=== PATIENT | male | born 1955 | race Caucasian/White ===

== ENCOUNTER 2019-06-06 09:58 | Outpatient (CLI) | payer MEDICARE, OTHER, SELFPAY ==
--- NOTE | 2019-06-06 10:15 | USCV_ITS ---
Jj Coe Age: 64 Gender: M : 1955 Exam Date: 06/06/2019 10:17 Ordering Phys: Latesha Vincent Technologist: Monica Louie [place] [facility] [place]: AAA Screening HISTORY: Diameter (cm) AP x Transverse x Length Velocity (cm/s) Waveform Prox Aorta: 2.50 x 2.36 x 88.80 Mid Aorta: 2.29 x 2.42 x 122.00 Distal Aorta: 1.70 x 1.73 x 160.50 Right Iliac Prox: 1.18 x 1.11 x 137.20 Left Iliac Prox: 1.18 x 1.21 x 137.20 Stent Prox Landing x x Aneurysmal Sac Max x x Lt Lat Sac Dim Rt Lat Sac Dim Stent Dist Landing x x Right Iliac Stent x x Left Iliac Stent x x Right Renal Art Left Renal Art FINDINGS: CONCLUSIONS No evidence of abdominal aortic or bilateral iliac aneurysm. Mild arteriovascular disease within the abdominal aorta. Sim Terrazas MD (Electronically Signed) Final Date: 06 June 2019 16:02 S
== END 2019-06-06 09:59 | disposition home or self-care (01) ==
LOC: RAD 10:04 → RADWPI 10:04
PROVIDERS: Family Provider Nurse Practitioner Family; PCP Nurse Practitioner Family; Visit Provider Nurse Practitioner Family
DX: Z13.89 Encounter for screening for other disorder (principal)
CPT/HCPCS: 76706

== ENCOUNTER → 2019-07-01 11:19 | Outpatient (BNVA) | payer MEDICARE, OTHER, SELFPAY | PROVIDERS: Family Provider Nurse Practitioner Family; PCP Nurse Practitioner Family; Visit Provider Urology | DX: R39.9 Unspecified symptoms and signs involving the genitourinary system (principal); Z12.5 Encounter for screening for malignant neoplasm of prostate; N40.1 Benign prostatic hyperplasia with lower urinary tract symptoms; N13.8 Other obstructive and reflux uropathy; R35.8 Other polyuria; R35.0 Frequency of micturition | CPT/HCPCS: 81001 ==

== ENCOUNTER 2019-07-15 10:42 | Outpatient (CLI) | payer MEDICARE, OTHER, SELFPAY ==
--- NOTE | 2019-07-15 11:11 | XR_ITS ---
WS: [id number] SCREENING DEXA SCAN [place] CLINICAL INFORMATION: WEDGE COMPRESSION FX OF LUMBAR VERTEBRAE, CLOSED FRACTURE COMPARISON: None. FINDINGS: The L1-L4 bone mineral density measures 1.163 g/cm2. This corresponds to a T score score of -0.5 and Z score of -0.2. Left femoral neck bone mineral density measures 1.001 g/cm2. This corresponds to a T score of -0.7 an d Z score of -0.2. Right femoral neck bone mineral density measures 0.931 g/cm2. This corresponds to a T score -1.2of an d Z score of -0.7. Mean femoral neck bone mineral density measures 0.966 g/cm2. This corresponds to a T score of -0.9 an d Z score of -0.5. XR/XR DEXA axial skeleton* 83099 IMPRESSION: Osteopenia Patient's FRAX calculated 10 year probability for major osteoporotic fracture i s 10.9 % and osteoporotic hip fracture is 2.9%.
== END 2019-07-15 10:43 | disposition home or self-care (01) ==
LOC: RADWPI 10:48
PROVIDERS: Family Provider Nurse Practitioner Family; PCP Nurse Practitioner Family; Visit Provider Nurse Practitioner Family
DX: M48.56XA Collapsed vertebra, not elsewhere classified, lumbar region, initial encounter for fracture (principal)
CPT/HCPCS: 77080

== ENCOUNTER → 2020-06-30 12:49 | Outpatient (BNVA) | payer MEDICARE, OTHER, SELFPAY | PROVIDERS: Family Provider Nurse Practitioner Family; PCP Nurse Practitioner Family; Visit Provider Urology | DX: Z12.5 Encounter for screening for malignant neoplasm of prostate (principal); N40.1 Benign prostatic hyperplasia with lower urinary tract symptoms; N13.8 Other obstructive and reflux uropathy; R35.0 Frequency of micturition | CPT/HCPCS: 81003; G0103 ==

== ENCOUNTER → 2022-06-27 12:12 | Outpatient (BNVA) | payer BC, SELFPAY | PROVIDERS: Family Provider Nurse Practitioner Family; PCP Nurse Practitioner Family; Visit Provider Urology | DX: Z12.5 Encounter for screening for malignant neoplasm of prostate (principal) | CPT/HCPCS: 84153 ==

== ENCOUNTER → 2022-07-04 12:32 | Outpatient (BNVA) | payer BC, SELFPAY | PROVIDERS: Family Provider Nurse Practitioner Family; PCP Nurse Practitioner Family; Visit Provider Urology | DX: R35.0 Frequency of micturition (principal) | CPT/HCPCS: 81003 ==

== ENCOUNTER 2022-07-19 07:44 | Day surgery (SDC) | payer BC, SELFPAY ==
[2022-07-17 12:07] VITALS: BMI 23.1
[2022-07-19 08:10] VITALS: BP 131/93; PULSE 80; RESP 18; TEMP 36.3; O2SAT 95
[2022-07-19] MEDS: sodium chloride 0.9% 1,000 ML 30 ML IV (08:19)
--- NOTE | 2022-07-19 09:09 | ANES.PREANE2 ---
Pre-Anesthetic Assessment Height/Weight: Height 1.85 m Weight 79.379 kg Temp Pulse Resp BP Pulse Ox O2 Del Method 97.3 F L 80 18 131/93 95 Room Air 07/19/22 08:10 07/19/22 08:10 07/19/22 08:10 07/19/22 08:10 07/19/22 08:10 07/19/22 08:10 Preop Diagnosis: Hematochezia, GERD Operation Date: 07/19/22 09:45 Proposed Procedures p 99141 egd [id number] colon w/hemorrhoid banding K92.1,K21.9(Not Applicable) - DO selena Neff Colonoscopy(Not Applicable) - DO selena Neff Hemorrhoid Banding(Not Applicable) - George Gomez DO Familial anesthetic complications: none Last intake: Intake Last Liquid Date 07/18/22 Last Liquid Time 22:00 Last Solid Date 07/17/22 Last Solid Time 21:00 Social Alcohol (2 days per week) and Tobacco smokes pipe pack(s) per day Exam alert, oriented x 3, clear to auscultation bilaterally and regular rate & rhythm Airway Submandibular: within normal limits Cervical ROM: within normal limits Mallampati: Class II Dentition: full Comments: Comments: bearded Pulmonary None reported CV/HEM Hypertension and Palpitations METS>4-6 None reported Hepatic None reported GI Gastroesophageal Reflux Disease Metabolic Hyperlipidemia [facility] [place] None reported Neuropsych Depression Anesthetic Plan ASA status: 3 Anesthesia: MAC Medications/Allergies Home Medications Medication Instructions Recorded Confirmed Last Taken Type antiarthritic combination no.2 900 900 mg PO BID 07/01/19 07/17/22 07/17/22 History mg tablet (glucosamine-chondroitin) aspirin 81 mg tablet,delayed 81 mg PO DAILY 07/01/19 07/17/22 07/17/22 History release (Adult Low Dose Aspirin) magnesium oxide 400 mg PO DAILY 07/01/19 07/17/22 07/17/22 History metoprolol tartrate 25 mg tablet 25 mg PO BID 07/01/19 07/17/22 07/18/22 08:00 History dpkgiqiw-ujl-uffcz acid 300 1 tab PO DAILY 07/01/19 07/17/22 07/17/22 History mcg-lycopene 600 mcg-lutein 300 mcg tablet (Centrum Silver Men) omega-3 fatty acids 1,000 mg 1,000 mg PO BID 07/01/19 07/17/22 07/17/22 History capsule (Fish Oil Concentrate) potassium gluconate 595 mg (99 mg) 595 mg PO DAILY 07/01/19 07/17/22 07/17/22 History tablet atorvastatin 40 mg tablet 40 mg PO DAILY 06/27/22 07/17/22 07/17/22 History bupropion HCl 150 mg tablet,12 hr 150 mg PO BID 06/27/22 07/17/22 07/17/22 History sustained-release hydrocortisone 2.5 % topical cream 1 applic GA QID hemorrhoids 10 06/29/22 07/17/22 07/17/22 Rx with perineal applicator days #30 grams (Anusol-HC) pantoprazole 40 mg tablet,delayed 40 mg PO BID 6 weeks #84 tabs 06/29/22 07/17/22 07/17/22 Rx release (Protonix) finasteride 5 mg tablet 5 mg PO QDAY #90 tabs 07/04/22 07/17/22 07/17/22 Rx tamsulosin 0.4 mg capsule 0.4 mg PO DAILY #90 caps 07/04/22 07/17/22 07/17/22 Rx Allergies Allergy/AdvReac Type Severity Reaction Status Date / Time Penicillins Allergy Unknown Unknown Verified 07/17/22 11:52 Current Medications Generic Name Dose Route Start Last Admin Trade Name Freq PRN Reason Stop Dose Admin Sodium Chloride 1,000 mls @ 30 mls/hr 07/19/22 08:15 07/19/22 08:19 Sodium Chloride 0.9% IV 07/20/22 08:14 30 mls/hr .Q24H LIBRA Administration PFSH Anesthesia Medical History BPH with urinary obstruction Incomplete bladder emptying Polyuria Post-traumatic bulbous urethral stricture Surgical History Hx of tonsillectomy Hx of transurethral resection of prostate Family History Mother , age 87 CAD (coronary artery disease) Father , age 87 CAD (coronary artery disease) Social History Smoking and tobacco status: current every day smoker Alcohol intake: current Alcohol intake frequency: few times a week Substance/Drug Use: unknown Adopted: No Caregiver/support person: No Lives independently: No Household members: spouse Marital status: Single Current occupational status: retired Current gender identity: Male Data Anesthesia Cardiac Studies: No Data to Display
--- NOTE | 2022-07-19 10:51 | W.PM.OPSUD ---
Surgery/Procedure H&P Update DATE OF PROCEDURE: July 19, 2022 DATE H&P PERFORMED: 06/27/22 H&P UPDATE INFORMATION: I have reviewed H&P completed within last 30 days, I have examined patient prior to procedure and No changes to prior documentation PREOP DIAGNOSIS: Hematochezia, GERD PLANNED PROCEDURE: Operation Date: 07/19/22 09:45 Proposed Procedures p 79103 egd 15048 colon w/hemorrhoid banding K92.1,K21.9(Not Applicable) - George Gomez DO s Colonoscopy(Not Applicable) - DO selena Neff Hemorrhoid Banding(Not Applicable) - George Gomez DO
[2022-07-19 11:29] VITALS: BP 135/85; PULSE 82; RESP 16; TEMP 36.1; O2SAT 93
[2022-07-19 11:52] VITALS: BP 141/89; PULSE 79; RESP 16; O2SAT 96
--- NOTE | 2022-07-19 14:25 | ANE.PACU2 ---
Inpatient post-anesthesia follow up: Airway intact: Yes Vital signs: Temperature 97 F Pulse Rate 79 Respiratory Rate 16 Blood Pressure 141/89 Pulse Oximetry 96 Oxygen Delivery Me thod Room Air Oxygen Flow Rate 3 Fraction of Inspir ed Oxygen Hydration adequate: Yes Nausea and vomiting: No Pain level: 1 Mental status: Baseline
== END 2022-07-19 11:59 | disposition home or self-care (01) ==
PROVIDERS: PCP Nurse Practitioner Family; Visit Provider Surgery
PROC: 0DJ08ZZ Inspection of Upper Intestinal Tract, Via Natural or Artificial Opening Endoscopic (ICD-10-PCS; CPT 43235; principal; 2022-07-19 09:45)
PROC: 0DJD8ZZ Inspection of Lower Intestinal Tract, Via Natural or Artificial Opening Endoscopic (ICD-10-PCS; CPT 45378; 2022-07-19 09:45)
DX: K92.1 Melena (principal); Z86.010 Personal history of colon polyps; K21.9 Gastro-esophageal reflux disease without esophagitis; I10 Essential (primary) hypertension; F32.A Depression, unspecified; F17.290 Nicotine dependence, other tobacco product, uncomplicated; K29.50 Unspecified chronic gastritis without bleeding; D12.2 Benign neoplasm of ascending colon; D12.8 Benign neoplasm of rectum; K44.9 Diaphragmatic hernia without obstruction or gangrene; K64.8 Other hemorrhoids
CPT/HCPCS: 43239; 45385; 45388; 88305; 88342; J2704; J7030

== ENCOUNTER 2022-12-13 12:08 | Outpatient (CLI) | payer BC, SELFPAY ==
--- NOTE | 2022-12-13 | ECG_ITS ---
Test Date: 2022-12-13 Pat Name: Jj Coe Department: Room: Gender: Male Computer Help Desk Specialist: Mason Rosenbaum : 1955 Requested By: Paola Carnes Order Number: [id number] Mandy MD: Bart Serrano M.D. Interpretive Statements NAME OF STUDY: TREADMILL STRESS TEST INDICATION: [Chest Pain, ] EXERCISE DATA: The patient was exercised by Donald protocol. Baseline heart rate was 117 beats per minute. Baseline blood pressure was 130/78 millimeters of mercury. Target heart rate was 129 beats per minute. Maximum heart rate achieved was 166 which was 128% of the target heart rate. Maximum blood pressure was 202/83 millimeters of mercury. Total exercise time was 5 minutes and 1 secoon. Maximum METs achieved was 7. The reason for ending the test was maximal effort achieved. The patient complained of shortness of breath during the stress test, which then resolved at the end of the test. ELECTROCARDIOGRAM: BASELINE: Showed sinus tachycardia, left axis deviation, non specific ST T wave changes. [] EXERCISE: At the peak exercise level, [] No significant ST-T changes suggestive of ischemia noted. [] RECOVERY: During the recovery period, heart rate stayed elevated. No significant ST-T changes in the recovery suggestive of ischemia noted. [] CONCLUSION: 1. Exercise capacity is fair 2. Heart rate response was appropriate 3. Blood pressure response was appropriate 4. Symptoms not suggestive of ischemia. 5. Electrocardiogram portion of the stress test was not suggestive of ischemia. Electronically Signed On 12-28-2022 12:11:54 CDT by Bart Serrano M.D. [email or web address]
[2022-12-13 12:26] VITALS: BMI 23.7
[2022-12-13 13:02] VITALS: BP 117/84; PULSE 122
== END 2022-12-13 12:09 | disposition home or self-care (01) ==
LOC: CDL 12:09
PROVIDERS: PCP Nurse Practitioner Family; Visit Provider Nurse Practitioner Family
DX: R07.9 Chest pain, unspecified (principal)
CPT/HCPCS: 93017

== ENCOUNTER 2023-09-26 09:41 | Day surgery (SDC) | payer BC, SELFPAY ==
[2023-09-26 10:02] VITALS: BP 147/94; PULSE 66; RESP 16; TEMP 36.4; O2SAT 96; BMI 23.7
[2023-09-26] MEDS: sodium chloride 0.9% 1,000 ML 30 ML IV (10:15)
--- NOTE | 2023-09-26 11:15 | ANES.PREANE2 ---
Pre-Anesthetic Assessment Height/Weight: Height 1.85 m Weight 81.647 kg Temp Pulse Resp BP Pulse Ox O2 Del Method 97.5 F L 66 16 147/94 96 Room Air 09/26/23 10:02 09/26/23 10:02 09/26/23 10:02 09/26/23 10:02 09/26/23 10:02 09/26/23 10:02 Operation Date: 09/26/23 11:15 Proposed Procedures p EGD 81749, 66374 , G0105, K21.9 GERD, Z86.010(Not Applicable) - DO selena Neff Colonoscopy(Not Applicable) - George Gomez DO Familial anesthetic complications: None Was Beta Carl taken within 24 hours: Yes Was Clonidine taken within 24 hours: N/A Last intake: Intake Last Liquid Date 09/25/23 Last Liquid Time 21:00 Last Solid Date 09/24/23 Last Solid Time 18:00 Social Tobacco and No alcohol Exam alert, oriented x 3, clear to auscultation bilaterally and regular rate & rhythm Airway Mallampati: Class II GI Gastroesophageal Reflux Disease Neuropsych Anxiety Anesthetic Plan ASA status: 2 Anesthesia: MAC Risk of > 500 ml blood loss (7ml/kg in children): No Medications/Allergies Home Medications Medication Instructions Recorded Confirmed Last Taken Type antiarthritic combination no.2 900 900 mg PO BID 07/01/19 09/26/23 09/25/23 History mg tablet (glucosamine-chondroitin) aspirin 81 mg tablet,delayed 81 mg PO DAILY 07/01/19 09/26/23 09/24/23 History release (Adult Low Dose Aspirin) magnesium oxide 400 mg PO DAILY 07/01/19 09/26/23 09/24/23 History metoprolol tartrate 25 mg tablet 25 mg PO BID 07/01/19 09/26/23 09/26/23 History zpxfttfk-hq-srnfc 300 mcg-K 60 1 tab PO DAILY 07/01/19 09/26/23 09/25/23 History mcg-lycop 600 mcg-lutein 300 mcg tablet (Centrum Silver Men) omega-3 fatty acids 1,000 mg 1,000 mg PO BID 07/01/19 09/26/23 09/24/23 History capsule (Fish Oil Concentrate) atorvastatin 40 mg tablet 40 mg PO DAILY 06/27/22 09/26/23 09/25/23 History bupropion HCl 150 mg tablet,12 hr 150 mg PO BID 06/27/22 09/26/23 09/25/23 History sustained-release (Wellbutrin SR) hydrocortisone 2.5 % topical cream 1 applic HI QID hemorrhoids 10 06/29/22 09/26/23 07/17/22 Rx with perineal applicator days #30 grams (Anusol-HC) finasteride 5 mg tablet 5 mg PO QDAY #90 tabs 07/04/22 09/26/23 09/25/23 Rx tamsulosin 0.4 mg capsule 0.4 mg PO DAILY #90 caps 07/04/22 09/26/23 09/25/23 Rx methocarbamol 750 mg tablet 750 mg PO BID 09/25/23 09/26/23 09/25/23 History omeprazole 20 mg capsule,delayed 20 mg PO DAILY 09/25/23 09/26/23 09/25/23 History release Allergies Allergy/AdvReac Type Severity Reaction Status Date / Time Penicillins Allergy Unknown Unknown Verified 09/26/23 10:00 Current Medications Generic Name Dose Route Start Last Admin Trade Name Freq PRN Reason Stop Dose Admin Sodium Chloride 1,000 mls @ 30 mls/hr 09/26/23 10:00 09/26/23 10:15 Sodium Chloride 0.9% IV 09/27/23 09:59 30 mls/hr .Q24H LIBRA Administration PFSH Anesthesia Medical History (Updated 08/06/23 @ 11:26 by George Gomez DO) History of colon polyps Polyuria Post-traumatic bulbous urethral stricture Incomplete bladder emptying BPH with urinary obstruction Surgical History Hx of transurethral resection of prostate Hx of tonsillectomy Family History Mother , age 87 CAD (coronary artery disease) Father , age 87 CAD (coronary artery disease) Social History Smoking and tobacco/nicotine status: current every day tobacco/nicotine user Alcohol intake: current Alcohol intake frequency: few times a week Substance/Drug Use: unknown Adopted: No Caregiver/support person: No Lives independently: No Household members: spouse Marital status: Single Current occupational status: retired Current gender identity: Male Data Anesthesia Cardiac Studies: No Data to Display
--- NOTE | 2023-09-26 11:47 | PM.HP ---
Providers/Chief Complaint Primary Care Provider: Paola Carnes Chief Complaint: K21.9 History of Present Illness Jj Coe Jr is a 68 year old male Review of Systems General: Reports: 10 or more systems reviewed and unremarkable except in HPI and below Medications/Allergies Home Medications Medication Instructions Recorded Confirmed Last Taken Type antiarthritic combination no.2 900 900 mg PO BID 07/01/19 09/26/23 09/25/23 History mg tablet (glucosamine-chondroitin) aspirin 81 mg tablet,delayed 81 mg PO DAILY 07/01/19 09/26/23 09/24/23 History release (Adult Low Dose Aspirin) magnesium oxide 400 mg PO DAILY 07/01/19 09/26/23 09/24/23 History metoprolol tartrate 25 mg tablet 25 mg PO BID 07/01/19 09/26/23 09/26/23 History uwkgtfeq-bj-bdhif 300 mcg-K 60 1 tab PO DAILY 07/01/19 09/26/23 09/25/23 History mcg-lycop 600 mcg-lutein 300 mcg tablet (Centrum Silver Men) omega-3 fatty acids 1,000 mg 1,000 mg PO BID 07/01/19 09/26/23 09/24/23 History capsule (Fish Oil Concentrate) atorvastatin 40 mg tablet 40 mg PO DAILY 06/27/22 09/26/23 09/25/23 History bupropion HCl 150 mg tablet,12 hr 150 mg PO BID 06/27/22 09/26/23 09/25/23 History sustained-release (Wellbutrin SR) hydrocortisone 2.5 % topical cream 1 applic MA QID hemorrhoids 10 06/29/22 09/26/23 07/17/22 Rx with perineal applicator days #30 grams (Anusol-HC) finasteride 5 mg tablet 5 mg PO QDAY #90 tabs 07/04/22 09/26/23 09/25/23 Rx tamsulosin 0.4 mg capsule 0.4 mg PO DAILY #90 caps 07/04/22 09/26/23 09/25/23 Rx methocarbamol 750 mg tablet 750 mg PO BID 09/25/23 09/26/23 09/25/23 History omeprazole 20 mg capsule,delayed 20 mg PO DAILY 09/25/23 09/26/23 09/25/23 History release Allergies Allergy/AdvReac Type Severity Reaction Status Date / Time Penicillins Allergy Unknown Unknown Verified 09/26/23 10:00 PFSH Acute PFSH: Medical History History of colon polyps Polyuria Post-traumatic bulbous urethral stricture Incomplete bladder emptying BPH with urinary obstruction Surgical History Hx of transurethral resection of prostate Hx of tonsillectomy Family History Mother , age 87 CAD (coronary artery disease) Father , age 87 CAD (coronary artery disease) Social History Smoking and tobacco/nicotine status: current every day tobacco/nicotine user Alcohol intake: current Alcohol intake frequency: few times a week Substance/Drug Use: unknown Adopted: No Caregiver/support person: No Lives independently: No Household members: spouse Marital status: Single Current occupational status: retired Current gender identity: Male Vitals/I&O/Wt Last Vital Signs Temp 97.5 F L 09/26/23 10:02 Pulse 66 09/26/23 10:02 Resp 16 09/26/23 10:02 BP 147/94 09/26/23 10:02 Pulse Ox 96 09/26/23 10:02 O2 Del Method Room Air 09/26/23 10:02 Weight last 48 hrs Weight 180 lb Physical Exam Narrative: General : Patient is well developed , no acute distress, oriented x3 Head : Normal cephalic, a-traumatic. Ears : Pinnae and external canal are normal. Hearing is normal. Eyes : PERRLA, Sclera and injection are normal. No conjunctival discharge. Nose : Mucous membranes are without erythema. Throat : buccal mucosa is normal, gums are without significant recession or hypertrophy. Lungs : Equal chest rise bilaterally, no use of accessory muscles, trachea is midline. Cor : Rate and rhythm are normal. Abdomen : Soft, ND, NT, no g/r/m Extremities : No edema, no cyanosis or clubbing, dorsalis pedis pulses are present bilaterally, non-tender to palpation of calves. Upper extremities are normal bilaterally. Back : non-tender to palpation, no CVA tenderness. Neuro : CN II - XII intact, Upper and lower extremities have equal and full strength A&P Assessment and plan (1) GERD (gastroesophageal reflux disease): (2) History of colon polyps: Plan EGD and colonoscopy Attestations Medical Necessity Statement*: Home Coding Level of Care Code Acute Code for Chg Fwd Diagnoses GERD (gastroesophageal reflux disease) K21.9 History of colon polyps Z86.010
[2023-09-26 12:39] VITALS: BP 121/70; PULSE 56; RESP 18; TEMP 36.1; O2SAT 94
[2023-09-26 12:55] VITALS: BP 138/72; PULSE 60; RESP 16; O2SAT 99
--- NOTE | 2023-09-26 13:10 | ANE.PACU2 ---
Inpatient post-anesthesia follow up: Airway intact: Yes Vital signs: Temperature 97.0 F Pulse Rate 60 Respiratory Rate 16 Blood Pressure 138/72 Pulse Oximetry 99 Oxygen Delivery Me thod Room Air Oxygen Flow Rate 3 Fraction of Inspir ed Oxygen Hydration adequate: Yes Nausea and vomiting: No Pain level: 1 Mental status: Baseline
== END 2023-09-26 13:09 | disposition home or self-care (01) ==
PROVIDERS: PCP Nurse Practitioner Family; Visit Provider Surgery
PROC: 0DJ08ZZ Inspection of Upper Intestinal Tract, Via Natural or Artificial Opening Endoscopic (ICD-10-PCS; CPT 43235; principal; 2023-09-26 11:15)
PROC: 0DJD8ZZ Inspection of Lower Intestinal Tract, Via Natural or Artificial Opening Endoscopic (ICD-10-PCS; CPT 45378; 2023-09-26 11:15)
DX: Z12.11 Encounter for screening for malignant neoplasm of colon (principal); K21.9 Gastro-esophageal reflux disease without esophagitis; F17.200 Nicotine dependence, unspecified, uncomplicated; Z86.010 Personal history of colon polyps; K64.8 Other hemorrhoids; D12.2 Benign neoplasm of ascending colon; D12.5 Benign neoplasm of sigmoid colon; D12.3 Benign neoplasm of transverse colon; Z79.82 Long term (current) use of aspirin; N40.1 Benign prostatic hyperplasia with lower urinary tract symptoms; N13.8 Other obstructive and reflux uropathy
CPT/HCPCS: 43239; 45385; 45388; 88305; J2704; J7030

== ENCOUNTER → 2023-09-28 15:08 | Outpatient (BNVA) | payer BC, SELFPAY | PROVIDERS: PCP Nurse Practitioner Family; Visit Provider Podiatrist Foot & Ankle Surgery | DX: S82.832A Other fracture of upper and lower end of left fibula, initial encounter for closed fracture (principal); W18.09XA Striking against other object with subsequent fall, initial encounter | CPT/HCPCS: 73610 ==

== ENCOUNTER → 2023-10-10 10:43 | Outpatient (BNVA) | payer BC, SELFPAY | PROVIDERS: PCP Nurse Practitioner Family; Visit Provider Podiatrist Foot & Ankle Surgery | DX: S82.832D Other fracture of upper and lower end of left fibula, subsequent encounter for closed fracture with routine healing; X58.XXXD Exposure to other specified factors, subsequent encounter | CPT/HCPCS: 73610 ==

== ENCOUNTER → 2023-10-24 11:18 | Outpatient (BNVA) | payer BC, SELFPAY | PROVIDERS: PCP Nurse Practitioner Family; Visit Provider Podiatrist Foot & Ankle Surgery | DX: S82.832D Other fracture of upper and lower end of left fibula, subsequent encounter for closed fracture with routine healing; X58.XXXD Exposure to other specified factors, subsequent encounter | CPT/HCPCS: 73610 ==

== ENCOUNTER 2024-06-11 08:51 | Outpatient (CLI) | payer BC, SELFPAY ==
--- NOTE | 2024-06-11 08:54 | CT_ITS ---
WS: [id number] LDCT LUNG CANCER SCREENING TECHNIQUE: Noncontrast CT of the chest with coronal and sagittal reformatted images. CLINICAL INFORMATION: HX OF TOBACCO USE COMPARISON: None. DLP: 79.79 mGy.cm DIvol: Mean CTDIvol: 1.60 (mGy) All CT scans at [facility] use at least one of these dose optimization techniques: automated exposure control; mA and/or kV adjustment per patient size (includes targeted exams where dose is matched to clinical indication); or iterative reconstruction. FINDINGS: Subsegmental atelectasis in the lower lobes. Focal area of fibrosis LEFT lower lobe. Hazy groundglass opacity in the LEFT upper lobe measuring 1.8 x 1.5 cm this may be infectious or inflammatory but adenocarcinoma not excluded. Recommend further evaluation with PET/CT. No other suspicious pulmonary parenchymal abnormalities. Aortic calcification. No mediastinal or hilar lymphadenopathy. Coronary calcification. No axillary lymphadenopathy. Adrenal glands are normal. Small LEFT renal cyst. Small esophageal hiatal hernia. Partially visualized hepatic cysts largest in the RIGHT hepatic lobe partially visualized measuring 7.8 cm. Mild thoracic kyphosis. Cholelithiasis. CT/CT lung screening [id number] IMPRESSION: 1.8 x 1.5 cm focal groundglass opacity in the LEFT upper lobe is in determinate. This may be infectious or inflammatory but adenocarcinoma not excl uded. Recommend further evaluation with PET/CT LUNG-RADS: 4B-Suspicious FOLLOW UP: PET/CT recommended
== END 2024-06-11 08:52 | disposition home or self-care (01) ==
PROVIDERS: PCP Family Medicine; Visit Provider Family Medicine
DX: Z12.2 Encounter for screening for malignant neoplasm of respiratory organs (principal); Z87.891 Personal history of nicotine dependence; J98.11 Atelectasis; J84.10 Pulmonary fibrosis, unspecified; R91.8 Other nonspecific abnormal finding of lung field; I70.0 Atherosclerosis of aorta; I25.10 Atherosclerotic heart disease of native coronary artery without angina pectoris; N28.1 Cyst of kidney, acquired; K44.9 Diaphragmatic hernia without obstruction or gangrene; K76.89 Other specified diseases of liver; M40.294 Other kyphosis, thoracic region; K80.20 Calculus of gallbladder without cholecystitis without obstruction
CPT/HCPCS: 71271

== ENCOUNTER 2024-06-27 11:12 | Outpatient (CLI) | payer BC, SELFPAY ==
--- NOTE | 2024-06-27 15:08 | PETR_ITS ---
PROCEDURE INFORMATION: Exam: PET/CT Skull Base to Mid-thigh Exam date and time: 06/27/2024 12:49 PM Age: 69 years old Clinical indication: Abnormal findings; 1.8 x 1.5 cm focal groundglass opacity in the left upper lobe is indeterminate. ; Additional info: Abnormal lung findings LABS AND CLINICAL REPORTS: Glucose: 109 mg/dl Treatment strategy for malignancy (PET staging): Initial Staging (PI) TECHNIQUE: Imaging protocol: Following at least four-hour fasting and following the injection of radiopharmaceutical, low dose CT images were obtained. Then, PET images were obtained. Attenuation corrected images were constructed using the CT scan. Fused images of PET and CT were reviewed. The standardized uptake values (SUV) reported below are maximum values within a region of interest, expressed in gm/ml. Exam includes orbital meatal line to mid-thigh. SUV normalization method: BodyWeight Radiopharmaceutical: 10.81 mCi F-18 FDG (Fluorodeoxyglucose), IV. Time of imaging post radiopharmaceutical administration: 51 minutes Injection site: left ac COMPARISON: CT lung screening [id number] 06/11/2024 9:37 AM FINDINGS: Brain: Visualized brain has normal physiologic uptake. Pharynx: No abnormal uptake. Larynx: No abnormal uptake. Lungs, pleura and trachea: No abnormal uptake. Stable 1.8 x 1.5 cm left upper lobe ground-glass opacity on axial image 90 shows no FDG avidity. Heart: Normal physiologic uptake. Mediastinal space: No abnormal uptake. Liver: No abnormal uptake. Multiple photopenic cysts and non FDG avid subcentimeter hypodensities too small to completely characterize. Gallbladder and biliary ducts: No abnormal uptake. Cholelithiasis. Pancreas: No abnormal uptake. Spleen: No abnormal uptake. Adrenal glands: No abnormal uptake. Kidneys and ureters: Normal physiologic uptake. Tiny bilateral nonobstructive renal calculi. Stomach and bowel: No abnormal uptake. Vasculature: No abnormal uptake. Duex-xa-rrqkbkpd systemic atherosclerotic calcification without aortic aneurysm. Lymph nodes: No abnormal uptake. No lymphadenopathy in the head, neck, chest, abdomen, pelvis, and extremities. Calcified mediastinal node in keeping with sequela of old granulomatous disease. Skeleton: No suspicious abnormal uptake in the visualized axial and appendicular skeleton. Degenerative change along the axial skeletal system. Soft tissues: No abnormal uptake in the visualized head, neck, chest, abdomen, pelvis, and extremities. Tiny fat containing umbilical hernia. Small fat containing djsyu-temnlyn-pstb-left inguinal hernias. METRICS: Mediastinal blood pool: SUV mean 1.6 Liver uptake: SUV mean 1.8 PET/PET skull to thigh INIT [id number] IMPRESSION: 1. Stable 1.8 x 1.5 cm left upper lobe ground-glass opacity shows no FDG avidity. Recommend follow-up chest CT in 6-12 months. 2. Additional chronic and incidental findings as above, to include atherosclerosis, cholelithiasis, and bilateral nonobstructive nephrolithiasis.
== END 2024-06-27 11:13 | disposition home or self-care (01) ==
PROVIDERS: PCP Family Medicine; Visit Provider Family Medicine
DX: R91.8 Other nonspecific abnormal finding of lung field (principal); K76.89 Other specified diseases of liver; K80.20 Calculus of gallbladder without cholecystitis without obstruction; I70.90 Unspecified atherosclerosis; R59.0 Localized enlarged lymph nodes; M47.9 Spondylosis, unspecified; K40.20 Bilateral inguinal hernia, without obstruction or gangrene, not specified as recurrent
CPT/HCPCS: 78815; A9552

== ENCOUNTER 2024-07-16 08:37 | Day surgery (SDC) | payer BC, SELFPAY ==
[2024-07-16 08:55] VITALS: BP 145/73; PULSE 83; RESP 18; TEMP 36.1; O2SAT 94; BMI 23.7
--- NOTE | 2024-07-16 09:00 | W.PM.OPSUD ---
Surgery/Procedure H&P Update DATE OF PROCEDURE: July 16, 2024 DATE H&P PERFORMED: 06/24/24 H&P UPDATE INFORMATION: I have reviewed H&P completed within last 30 days, I have examined patient prior to procedure, No changes to prior documentation, Changes to prior documentation as noted here and Risks and benefits of the procedure reviewed PLANNED PROCEDURE: Operation Date: 07/16/24 10:10 Proposed Procedures p Colonoscopy 81655 G0105 Z12.11 D12.6(Not Applicable) - Marcos Alejandro MD
[2024-07-16] MEDS: sodium chloride 0.9% 1,000 ML 15 ML IV (09:05)
--- NOTE | 2024-07-16 09:39 | ANES.PREANE2 ---
Pre-Anesthetic Assessment Height/Weight: Height 1.85 m Weight 81.647 kg Temp Pulse Resp BP Pulse Ox O2 Del Method 97.0 F L 83 18 145/73 94 Room Air 07/16/24 08:55 07/16/24 08:55 07/16/24 08:55 07/16/24 08:55 07/16/24 08:55 07/16/24 08:55 Operation Date: 07/16/24 10:10 Proposed Procedures p Colonoscopy 12021 G0105 Z12.11 D12.6(Not Applicable) - Marcos Alejandro MD Familial anesthetic complications: none Was Beta Carl taken within 24 hours: Yes Was Clonidine taken within 24 hours: N/A Last intake: Intake Last Liquid Date 07/15/24 Last Liquid Time 22:00 Last Solid Date 07/14/24 Last Solid Time 22:00 Social No alcohol and No tobacco Exam alert and oriented x 3 History/ROS No significant history except as noted Pulmonary None reported CV/HEM Hypertension None reported Hepatic None reported GI Gastroesophageal Reflux Disease (well controlled) Metabolic Hyperlipidemia [facility] [place] None reported Neuropsych None reported Anesthetic Plan ASA status: 2 Anesthesia: Anesthesia Evaluation and MAC Medications/Allergies Home Medications ?Medication ?Instructions ?Recorded ?Confirmed ?Last Taken ?Type antiarthritic combination no.2 900 900 mg PO BID 07/01/19 07/09/24 07/15/24 07:00 History mg tablet (glucosamine-chondroitin) aspirin 81 mg tablet,delayed 81 mg PO DAILY 07/01/19 07/09/24 07/15/24 22:00 History release (Adult Low Dose Aspirin) magnesium oxide 400 mg PO DAILY 07/01/19 07/09/24 07/15/24 07:00 History metoprolol tartrate 25 mg tablet 25 mg PO BID 07/01/19 07/09/24 07/16/24 07:15 History [id number] 300 mcg-K 60 1 tab PO DAILY 07/01/19 07/09/24 07/15/24 07:00 History mcg-lycop 600 mcg-lutein 300 mcg tablet (Centrum Silver Men) omega-3 fatty acids 1,000 mg 1,000 mg PO BID 07/01/19 07/09/24 07/15/24 07:00 History capsule (Fish Oil Concentrate) finasteride 5 mg tablet 5 mg PO QDAY #90 tabs 07/04/22 07/09/24 07/15/24 07:00 Rx tamsulosin 0.4 mg capsule 0.4 mg PO DAILY #90 caps 07/04/22 07/09/24 07/15/24 07:00 Rx Crutches #1 ea 09/28/23 10/25/23 07/15/24 07:00 Rx atorvastatin 80 mg tablet 80 mg PO DAILY 06/24/24 07/09/24 07/15/24 07:00 History mometasone 0.1 % topical cream 1 applic topical DAILY 06/24/24 07/09/24 07/15/24 07:00 History omeprazole 20 mg capsule,delayed 20 mg PO DAILY 06/24/24 07/09/24 07/16/24 07:15 History release Allergies Allergy/AdvReac Type Severity Reaction Status Date / Time Penicillins Allergy Unknown Unknown Verified 07/16/24 08:50 [facility] Anesthesia Medical History History of colon polyps Polyuria Post-traumatic bulbous urethral stricture Incomplete bladder emptying BPH with urinary obstruction Surgical History Hx of transurethral resection of prostate Hx of tonsillectomy Family History Mother , age 87 CAD (coronary artery disease) Father , age 87 CAD (coronary artery disease) Social History Smoking and tobacco/nicotine status: former use of tobacco/nicotine Alcohol intake: current Alcohol intake frequency: few times a week Substance/Drug Use: unknown Adopted: No Caregiver/support person: No Lives independently: No Household members: spouse Marital status: Single Current occupational status: retired Current gender identity: Male
[2024-07-16 10:31] VITALS: BP 99/63; PULSE 55; RESP 16; TEMP 36.5; O2SAT 94
--- NOTE | 2024-07-16 10:33 | ANE.PACU2 ---
Inpatient post-anesthesia follow up: Airway intact: Yes Vital signs: Temperature 97.0 F Pulse Rate 83 Respiratory Rate 18 Blood Pressure 145/73 Pulse Oximetry 94 Oxygen Delivery Me thod Room Air Oxygen Flow Rate Fraction of Inspir ed Oxygen Hydration adequate: Yes Nausea and vomiting: No Pain level: 1 Mental status: Baseline
[2024-07-16 11:09] VITALS: BP 136/82; PULSE 57; RESP 18; O2SAT 94
== END 2024-07-16 11:18 | disposition home or self-care (01) ==
PROVIDERS: PCP Family Medicine; Visit Provider Surgery
PROC: 0DJD8ZZ Inspection of Lower Intestinal Tract, Via Natural or Artificial Opening Endoscopic (ICD-10-PCS; CPT 45378; principal; 2024-07-16 10:10)
DX: Z12.11 Encounter for screening for malignant neoplasm of colon (principal); D12.2 Benign neoplasm of ascending colon; D12.0 Benign neoplasm of cecum; K63.5 Polyp of colon; D12.3 Benign neoplasm of transverse colon; I10 Essential (primary) hypertension; E78.5 Hyperlipidemia, unspecified; K21.9 Gastro-esophageal reflux disease without esophagitis; Z79.899 Other long term (current) drug therapy; Z79.82 Long term (current) use of aspirin; Z88.0 Allergy status to penicillin; Z87.891 Personal history of nicotine dependence
CPT/HCPCS: 45380; 45385; 88305; J2704; J7030

== ENCOUNTER → 2024-07-30 14:34 | Outpatient (BNVA) | payer MEDICARE, SELFPAY | PROVIDERS: PCP Family Medicine; Visit Provider Surgery | DX: Z09 Encounter for follow-up examination after completed treatment for conditions other than malignant neoplasm (principal) | CPT/HCPCS: 99213 ==

== ENCOUNTER → 2024-08-07 10:56 | Outpatient (BNVA) | payer MEDICARE, SELFPAY | PROVIDERS: PCP Family Medicine; Visit Provider Nurse Practitioner Family | DX: L40.0 Psoriasis vulgaris (principal); L57.8 Other skin changes due to chronic exposure to nonionizing radiation; L73.8 Other specified follicular disorders; L82.1 Other seborrheic keratosis; Q82.5 Congenital non-neoplastic nevus; L57.0 Actinic keratosis | CPT/HCPCS: 17000; 99214 ==

== ENCOUNTER → 2025-01-26 14:28 | Outpatient (BNVA) | payer MEDICARE, SELFPAY | PROVIDERS: PCP Family Medicine; Visit Provider Nurse Practitioner Family | DX: L40.0 Psoriasis vulgaris (principal); L57.8 Other skin changes due to chronic exposure to nonionizing radiation; L73.8 Other specified follicular disorders; L82.1 Other seborrheic keratosis; Q82.5 Congenital non-neoplastic nevus; L82.0 Inflamed seborrheic keratosis; Z78.9 Other specified health status; L57.0 Actinic keratosis | CPT/HCPCS: 17000; 17110; 99214 ==